=== PATIENT | female | born 1975 | race Caucasian/White ===

== ENCOUNTER 2016-07-27 05:30 | Day surgery (SDC) | payer OTHER ==
[~2016-07-27] VITALS: Ht 175.3 cm; Wt 90.0 kg
[~2016-07-27 05:30] MED LIST: PRISTIQ100 MG PO; TUMS500 MG PO; VYVANSE20 MG PO
[2016-07-27 06:25] VITALS: BP 112/75
[2016-07-27 11:32] VITALS: BP 100/583
[2016-07-27 12:25] VITALS: BP 101/55
[2016-07-27 14:30] VITALS: BP 110/59
[2016-07-27 15:58] VITALS: BP 107/70
== END 2016-07-27 16:08 | disposition home or self-care (01) ==
LOC: SDC 05:30
DX: N92.1 Excessive and frequent menstruation with irregular cycle (principal); D25.1 Intramural leiomyoma of uterus; N94.6 Dysmenorrhea, unspecified; N72 Inflammatory disease of cervix uteri; N80.0 Endometriosis of uterus; N85.4 Malposition of uterus; Z82.49 Family history of ischemic heart disease and other diseases of the circulatory system; Z83.3 Family history of diabetes mellitus; Z80.49 Family history of malignant neoplasm of other genital organs; Z84.2 Family history of other diseases of the genitourinary system
CPT/HCPCS: 88307; J0690; J1100; J1170; J1885; J2250; J2274; J3010; S0020